=== PATIENT | male | born 1955 | race Caucasian/White ===

== ENCOUNTER 2017-07-24 14:57 | Outpatient (CLI) | END 2017-07-24 16:43 | disposition home or self-care (01) ==

== ENCOUNTER → 2017-08-07 | Outpatient (CLI) | END | disposition home or self-care (01) ==

== ENCOUNTER 2017-08-16 16:05 | Emergency (ER) | END 2017-08-16 19:12 | disposition home or self-care (01) ==

== ENCOUNTER 2017-10-14 19:09 | Inpatient (IN) | END 2017-10-16 15:25 | disposition home or self-care (01) | DRG 593 ==

== ENCOUNTER 2017-12-14 14:49 | Day surgery (SDC) | END 2017-12-14 19:12 | disposition home or self-care (01) ==

== ENCOUNTER 2017-12-15 18:57 | Emergency (ER) | END 2017-12-15 19:50 | disposition left against medical advice (07) ==

== ENCOUNTER 2018-01-05 14:08 | Day surgery (SDC) | END 2018-01-05 18:38 | disposition home or self-care (01) ==

== ENCOUNTER 2018-02-11 15:57 | Inpatient (IN) | END 2018-02-17 14:20 | disposition home or self-care (01) | DRG 872 ==